=== PATIENT | male | born 1965 | race Caucasian/White ===

== ENCOUNTER 2019-08-05 13:18 | Emergency (ER) | payer OTHER ==
[~2019-08-05] VITALS: Ht 188 cm; Wt 96.0 kg
[2019-08-05 13:30] VITALS: BP 131/80
--- NOTE | 2019-08-05 14:25 | NUR ---
BREAK RN: PT GIVEN JUICE AND CRACKERS.
== END 2019-08-05 15:39 | disposition home or self-care (01) ==
LOC: ED 15:08
DX: S52.125A Nondisplaced fracture of head of left radius, initial encounter for closed fracture (principal); S73.102A Unspecified sprain of left hip, initial encounter; S83.92XA Sprain of unspecified site of left knee, initial encounter; M25.522 Pain in left elbow; F17.200 Nicotine dependence, unspecified, uncomplicated; Y08.89XA Assault by other specified means, initial encounter; Y93.89 Activity, other specified; Y92.410 Unspecified street and highway as the place of occurrence of the external cause; Y99.8 Other external cause status
CPT/HCPCS: 29125; 70450; 99284